=== PATIENT | male | born 1960 | race Caucasian/White ===

== ENCOUNTER 2022-03-13 05:45 | Day surgery (SDC) | payer OTHER ==
[2022-03-13] VITALS (7 sets, daily range): BP systolic 110–124; BP diastolic 75–94; PULSE 58–80; TEMP 97–97.6
[~2022-03-13] VITALS: Ht 188 cm; Wt 94.3 kg
[2022-03-13] MEDS ORDERED: VITAMIN FLUSH-F1 CAP (06:16)
[2022-03-13] MEDS ORDERED: THE MEDICINE S200 M2 PO (06:17)
[2022-03-13] MEDS ORDERED: VITAMIND3 5000 PO (06:18)
[2022-03-13] MEDS ORDERED: CELEBREX 200MG200 MG PO (11:12)
[2022-03-13] MEDS ORDERED: CEPHALEXIN500 M1 PO (11:13)
[2022-03-13] MEDS ORDERED: NORCO 325 MG-51 TAB PO ×2 (11:13→11:29)
--- NOTE | 2022-03-13 11:40 | NUR ---
PT TO BAY 8 PER CART FROM PACU. REPORT RECEIVED. VS OBTAINED. PT RESTING COMFORTABLY. CALL GÓMEZ WEINBERG. PT DENIES ANY NEEDS.
--- NOTE | 2022-03-13 13:00 | NUR ---
PT TOLERATING OJ AND MUFFIN WITHOUT DIFFICULTY. WILL CONTINUE TO MONITOR.
--- NOTE | 2022-03-13 14:45 | NUR ---
1415-DISCHARGE EDUCATION COMPLETED WITH PT AND HIS . VERBALIZED UNDERSTANDING OF HOME AND FOLLOW UP CARE. ALL QUESTIONS ANSWERED. DISCHARGE PAPERWORK GIVEN TO PT. 1445-PT OFF UNIT PER WHEELCHAIR. PT DISCHARGED TO HOME WITH PER PERSONAL VEHICLE.
== END 2022-03-13 14:45 | disposition home or self-care (01) ==
LOC: SDCO 05:45
DX: S83.271A Complex tear of lateral meniscus, current injury, right knee, initial encounter (principal); S43.432A Superior glenoid labrum lesion of left shoulder, initial encounter; M17.11 Unilateral primary osteoarthritis, right knee; M75.42 Impingement syndrome of left shoulder; M19.012 Primary osteoarthritis, left shoulder; X58.XXXA Exposure to other specified factors, initial encounter
CPT/HCPCS: A4619; C1713; J0171; J0690; J1100; J1885; J2250; J2405; J2704; J2795; J3010; J7120

== ENCOUNTER 2022-08-07 05:34 | Day surgery (SDC) | payer OTHER ==
[~2022-08-07] VITALS: Ht 188 cm; Wt 90.3 kg
[2022-08-07] VITALS (11 sets, daily range): BP systolic 99–128; BP diastolic 59–83; PULSE 64–82; TEMP 97.8–98.5
[~2022-08-07 05:34] MED LIST: CELEBREX 200MG200 MG PO; CEPHALEXIN500 M1 PO; NORCO 325 MG-51 TAB PO; THE MEDICINE S200 M2 PO; VITAMIN FLUSH-F1 CAP; VITAMIND3 5000 PO
[2022-08-07] MEDS ORDERED: OMEGA-3 1000 MG1 CAP PO (06:45)
--- NOTE | 2022-08-07 14:45 | NUR ---
PT TO ROOM 330 PER BED WITH REPORT FROM MAHAMED PAINT DIPPER @1300. PT IS A/O X4, LUNGS CTA, BOWEL SOUNDS PRESENT. BILATERAL KNEES WITH OCCLUSIVE DRESSING NO DRAINAGE NOTED. IV TO RA.
[2022-08-07] MEDS ORDERED: ALLEGRA 60MG TA60 MG PO (19:09)
--- NOTE | 2022-08-07 22:41 | NUR ---
SHIFT REPORT FROM NAIDA MAYO. PATIENT IN BED ON ROOM ENTRY. ALERT AND ORIENTED. HS MEDS PER EMAR. NOTIFIED BRENDA DELFINA OF REQUEST FOR PATSY, CLARITIN STARTED AND GIVEN. SCHEDULED TYLENOL AND TORADOL FOR PAIN CONTROL. BULKY DRESSING AND ICE TO BILATERAL KNEES. SCDS IN PLACE. DENIES ADDITIONAL NEEDS. CALL LIGHT IN REACH.
[2022-08-08 04:04] VITALS: BP 114/57; PULSE 70; TEMP 98.6
[2022-08-08 07:06] LABS: HEMOGLOBIN 11.8 g/dl (13.5-18.0)
[2022-08-08 07:07] LABS: HEMATOCRIT 33.4 % (42.0-52.0)
[2022-08-08 07:14] LABS: CALCIUM 8.2 mg/dL (8.4-10.2); CREATININE, serum 0.81 mg/dL (0.72-1.25); POTASSIUM 3.7 mmol/L (3.5-4.5)
[2022-08-08 07:46] VITALS: BP 104/66; PULSE 66; TEMP 97.7
--- NOTE | 2022-08-08 09:17 | NUR ---
Pt. sitting up in bed. Pt. is A&Ox3, assessment complete. INT to rt. ac patent. Pt. reported pain at a 7 on pain scale, gave pain meds per orders. Pt. now rates pain at a 2 on pain scale. Dressings to Bilat. knees, CDI. Pt. denies further needs, call light within reach.
--- NOTE | 2022-08-08 09:52 | NUR ---
Initial visit; Patient thanked Potato Peeler for looking in on him and introducing herself. Potato Peeler offered God's blessings for good health.
[2022-08-08 11:21] VITALS: BP 108/69; PULSE 80; TEMP 98.5
[2022-08-08] MEDS ORDERED: CELEBREX 200MG200 MG PO (13:07)
[2022-08-08] MEDS ORDERED: DOXYCYCLINE 10100 MG PO (13:08)
[2022-08-08] MEDS ORDERED: PERCOCET 325 MG1 TA2 PO (13:08)
[2022-08-08] MEDS ORDERED: ULTRAM 50MG TAB50 MG PO (13:08)
[2022-08-08] MEDS ORDERED: ASPIRIN 81M81 MG/TA2 PO (13:09)
--- NOTE | 2022-08-08 15:40 | NUR ---
Pt. ready for discharge. Reviewed and gave patient the discharge instructions. Pt. and voice understanding. INT discontinued from rt. ac. Pt. escorted out by SONIA.
--- NOTE | 2022-08-08 16:01 | NUR ---
Plating Foreman met with patient to discuss discharge planning. Patient lives in [place] with his , Cece (ph#[phone]) and sees Dr. Pastor for primary care. Patient obtains medications from [facility]. Patient advised he is normally independent with ADLS and does not use any DME. Patient is in need of a front wheeled walker. Patient also reported his is his DPOA-HC. SW reviewed DME options with patient and he selected [facility]. SW faxed referral and order for FWW to [facility]. Walker was delivered to patient's room and he was discharged home today. Discharge Plan: Home
== END 2022-08-08 16:00 | disposition home or self-care (01) ==
LOC: SDCO 05:34 → SURG 12:30 → SDCO 08-08 16:00
PROVIDERS: Orthopaedic Surgery
DX: M17.12 Unilateral primary osteoarthritis, left knee (principal); M17.11 Unilateral primary osteoarthritis, right knee; Z28.310 Unvaccinated for COVID-19; Z87.891 Personal history of nicotine dependence; Z86.16 Personal history of COVID-19
CPT/HCPCS: OP; A4314; A9284; C1713; C1776; J0690; J1170; J1580; J1885; J2250; J2270; J2405; J2704; J2795; J3010; J7030; J7120

== ENCOUNTER 2022-09-06 12:45 | Outpatient (RCR) | payer OTHER ==
[~2022-09-06 12:45] MED LIST changes: +ALLEGRA 60MG TA60 MG PO; +ASPIRIN 81M81 MG/TA2 PO; +DOXYCYCLINE 10100 MG PO; +OMEGA-3 1000 MG1 CAP PO; +PERCOCET 325 MG1 TA2 PO; +ULTRAM 50MG TAB50 MG PO
== END 2022-09-08 | disposition home or self-care (01) ==
LOC: WSPT
DX: M25.561 Pain in right knee (principal); M25.562 Pain in left knee